=== PATIENT | female | born 1930 | race Caucasian/White ===

== ENCOUNTER → 2016-04-19 | Outpatient (CLI) | payer OTHER ==
--- NOTE | 2016-04-19 15:51 | DX ---
Left Humerus, Two Views. HISTORY: Left upper arm pain for two months. FINDINGS: There is diffuse demineralization. No evidence for acute fracture or dislocation. Moderate degenerative change is seen at the glenohumeral joint. Moderate degenerative change is seen at the ac romioclavicular joint. IMPRESSION: Moderate degenerative changes above. Demineralization.
== END ==
LOC: CIMAGING 14:57
PROVIDERS: ATTEND Family Medicine
DX: M19.012 Primary osteoarthritis, left shoulder (principal)
CPT/HCPCS: 73060-PO

== ENCOUNTER 2017-07-14 12:49 | Emergency (ER) | payer OTHER ==
--- NOTE | 2017-07-14 13:50 | EDPHY ---
H & P Time Seen by Provider: 07/14/17 13:13 HPI/ROS: This patient presents with complaint of lower dentures being stuck in her mouth and causing some discomfort. She has the impression that she put them in the wrong way 2 days ago but can't explain how there in the wrong way. She has not been eating over the last 2 days per search engineer who accompanies her at her assisted living facility because her dentures are bothering her. ROS: Constitutional: No fevers HEENT: No acute trauma to the mouth. Infectious disease: No swelling in her mouth. No bleeding. No acute dental trauma. 5 point ROS is otherwise negative. Past Medical/Surgical History: Otherwise healthy. Smoking Status: Never smoked Physical Exam: Physical Exam Vital signs are normal. General: Pleasant elderly female No acute distress HEENT: Atraumatic. The patient has lower dental partial that is fixed between a nikolai right molar and right and left frontal incisor with a metallic 3/4 ring that fits around frontal incisors. No angioedema or intraoral lesions. No areas of fluctuance or bleeding. Neck is supple Eyes: Pupils equal and react to light. Extraocular motions are intact. Lungs: No respiratory distress. Cardiac: Brisk capillary refill is intact throughout. Skin: No rash or pallor. Neuro: Alert and oriented x3 with no sensorimotor deficits. Constitutional: Initial Vital Signs Temperature (C) 36.6 C 07/14/17 13:02 Heart Rate 85 07/14/17 13:02 Respiratory Rate 18 07/14/17 13:02 Blood Pressure 147/100 H 07/14/17 13:02 O2 Sat (%) 92 07/14/17 13:02 O2 Delivery Mode Room Air Allergies/Adverse Reactions: No Known Allergies Allergy (Verified 09/19/15 12:18) Home Medications: Medication Instructions Recorded Miscellaneous Medical Supply [NO 07/15/12 HOME MEDS] MDM/Departure - MDM Procedures: Dental removal: Using a gloves and gauze I was able to remove the patient's lower dental partial after several minutes of maneuvering and wiggling. The patient tolerated this well with no complications. Her search engineer was at the bedside throughout. Her nurse Berkley was also at the bedside throughout assisting by holding the patient's head. Discussion: No evidence of periodontal abscess, acute trauma or other complicating factors other than poorly fitting dental partial - Depart Disposition: Home, Routine, Self-Care Clinical Impression: Ill-fitting dentures Condition: Good Instructions: Toothache (ED) Additional Instructions: Diagnosis: Ill-fitting dentures Plan: Avoid using these dentures until you see a dentist to have them re- fitted. Have a soft diet for now. Tylenol for discomfort if needed. Referrals: Ulysses García MD [Primary Care Provider] - As per Instructions
[2017-07-14 13:57] VITALS: BP 138/62
== END 2017-07-14 15:07 | disposition home or self-care (01) ==
LOC: CED 12:49
DX: Z46.3 Encounter for fitting and adjustment of dental prosthetic device (principal)